=== PATIENT | male | born 1980 | race Caucasian/White ===

== ENCOUNTER 2024-12-07 21:18 | Emergency (ER) | payer MEDICARE, MEDICAID, SELFPAY ==
[2024-12-07] VITALS (9 sets, daily range): BP systolic 162–174; BP diastolic 112–119; PULSE 100–142; RESP 14–22; TEMP 36.5; O2SAT 98–100
--- NOTE | ~2024-12-07 | XR_ITS ---
CHEST RADIOGRAPH CLINICAL HISTORY: Rib fracture w hemothorax, deteriorating . COMPARISON: 12/07/2024 TECHNIQUE: Single portable view of the chest. FINDINGS Examination is limited by patient rotation (towards the patient's right). The cardiomediastinal silhouette is obscured. Hazy opacification of the left hemithorax with significant left pleural thickening and layering densi ty within the left lung base. IMPRESSION: Increased opacification of the left hemithorax with large left-sided pleural thickening and layering density within the left lung base. Given patient's history of rib fracture with hemothorax, this appearance represents significant progr ession, possibly an intercostal hemorrhage. Reviewed, dictated and finalized at location A. IMPRESSION: Increased opacification of the left hemithorax with large left-sided pleural th ickening and layering density within the left lung base. Given patient's history of rib fracture with hemothorax, this appearance repres ents significant progression, possibly an intercostal hemorrhage.
--- NOTE | ~2024-12-07 | XR_ITS ---
EXAMINATION: XR chest ET placement DATE: 12/08/2024 02:45 INDICATION: Endotracheal tube placement TECHNIQUE: frontal view of the chest was obtained. COMPARISON: Chest radiograph dated 12/08/24 FINDINGS: Endotracheal tube tip 4.4 cm above the shawna. Nasogastric tube tip in the body of the stomach with p roximal side-port 6 cm above level of the diaphragm. Diffuse hazy opacities throughout the left hemithorax due primarily to a small to moderate-sized post erior layering left pleural effusion with associated atelectasis which is increased since 12/07/2024. Pneumonia not excludable. Right lung remains clear. No pneumothorax or right-sided pleural effusion. The cardiomediastinal silhouette is normal. Displaced lateral left eighth rib fracture. Calcite galls tones in the right upper quadrant. IMPRESSION: 1. Nasogastric tube tip in the body the stomach with proximal side-port above level of the gastroesop hageal junction. Recommend advancement by 10 cm. 2. Worsening unilateral small to moderate-sized left pleural effusion with associated atelectasis and /or pneumonia. 3. Displaced left eighth rib fracture. 4. Cholelithiasis. Reviewed, dictated and finalized at location A. IMPRESSION: 1. Nasogastric tube tip in the body the stomach with proximal side-port above l evel of the gastroesophageal junction. Recommend advancement by 10 cm. 2. Worsening unilateral small to moderate-sized left pleural effusion with asso ciated atelectasis and/or pneumonia. 3. Displaced left eighth rib fracture. 4. Cholelithiasis.
--- NOTE | ~2024-12-07 | XR_ITS ---
EXAMINATION: XR chest ET placement DATE: 12/08/2024 02:45 INDICATION: Endotracheal tube repositioning TECHNIQUE: frontal view of the chest was obtained. COMPARISON: Chest radiograph dated 12/08/[address] dated 12/07/2024 FINDINGS: Endotracheal tube tip 2.4 cm above the shawna. Nasogastric tube extends beyond the inferior margin of the [id number] which is near the level of the gastroesophageal junction. Unchanged small to moderate-sized left pleural effusion with associated atelectasis and/or pneumonia. Right lung remains clear. No pneumothorax or right-sided pleural effusion. Heart size is normal. Dis placed left eighth rib fracture. IMPRESSION: 1. Endotracheal tube in good position 2.4 cm above the shawna. 2. Unchanged small to moderate-sized left pleural effusion with associated basilar atelectasis and/or pneumonia. 2. Displaced left eighth rib fracture. Reviewed, dictated and finalized at location A. IMPRESSION: 1. Endotracheal tube in good position 2.4 cm above the shwana. 2. Unchanged small to moderate-sized left pleural effusion with associated basi lar atelectasis and/or pneumonia. 2. Displaced left eighth rib fracture.
--- NOTE | ~2024-12-07 | XR_ITS ---
XR chest 1V portable Ordering provider: Darek Price MD History: 44 years Male with . Popping sensation/LL chest LUabdomen . Comparison: None. FINDINGS: MEDIASTINUM: The cardiac silhouette is not enlarged. Congestive reinaldo. LUNGS: No effusions or pneumothorax. Opacification in the left lung base seen suggestive of atelectas is versus pneumonia. Slightly prominent markings in the right lung base is seen. OTHER: No free air under the diaphragm. IMPRESSION: Left basilar atelectasis versus pneumonia. Reviewed, dictated and finalized at location A.
--- NOTE | ~2024-12-07 | CT_ITS ---
CTA chest abdomen pelvis Ordering provider: Darek Price MD History: . popping sensation, L upper abdomen/lower chest, . Comparison: October 05, 2017 Technique: CT angiogram chest, abdomen and pelvis was performed following timed intravenous injection of contrast. Thin slice axial images and reformatted coronal images were obtained. Three dimensional reformatted images of the chest were also obtained using a [employer] workstation. Radiation reduction t echnique utilized.The dose-length product was 1699.12 mGy-cm. 100 mL Omnipaque 350 was given IV. FINDINGS: CHEST: --THORACIC AORTA: normal. No aneurysm, dissection or mediastinal hematoma. --GREAT VESSELS: Normal as visualized. --PULMONARY ARTERIES: No pulmonary embolus. --VISUALIZED THORACIC INLET: Normal. --MEDIASTINUM: Coronary arteries: Normal. Heart/other: The heart is not enlarged. Lymph nodes: No mediastinal or hilar adenopathy. --LUNGS: Left pleural effusion or hemothorax. No pulmonary nodules or masses. No infiltrates. No pneumothorax. --MUSCULOSKELETAL: Superficial soft tissues: The superficial soft tissues are normal. Bones: Fracture of the left eighth rib. Mild degenerative changes of the spine. ABDOMEN/PELVIS: --MUSCULOSKELETAL: Bones: Mild degenerative changes of the spine. Superficial soft tissues: The superficial soft tissues are normal. --UPPER ABDOMINAL ORGANS: Liver: Fat infiltration of the liver. Gallbladder: Cholelithiasis. Spleen: Normal. Stomach/duodenum: Normal. Pancreas: Normal. Adrenals: Normal. Kidneys: Small cyst in the left kidney upper pole. Small cysts also seen in the right kidney lower an d upper pole. --PELVIC ORGANS: The bladder is underfilled with thickened wall. No bladder stones. --BOWEL AND MESENTERY: Colon: No evidence of diverticulitis. Appendix is not demonstrated. Small Bowel: Normal. No obstruction. Peritoneum/mesentery: No free air or free fluid. No mesenteric lymphadenopathy. --RETROPERITONEUM: No retroperitoneal lymphadenopathy. --ARTERIES: ABDOMINAL AORTA: Normal No aneurysm or dissection. RENAL ARTERIES: Normal. CELIAC AXIS: Normal. SMA: Normal. CHANTALE: Normal. ILIAC AND VISUALIZED FEMORAL ARTERIES: Mild atherosclerotic changes MESENTERIC ARTERIES: Normal. IMPRESSION: CHEST: 1. No evidence of dissection or aneurysm. 2. Fracture of the left eighth rib. 3. Left hemothorax. ABDOMEN/PELVIS: 1. No evidence of dissection or aneurysm. 2. No acute abdominal process. 3. Cholelithiasis. 4. Fat infiltration of the liver. Reviewed, dictated and finalized at location A.
--- NOTE | ~2024-12-07 | XR_ITS ---
EXAMINATION: XR chest-chest tube insert/pos DATE: 12/08/2024 03:30 INDICATION: Chest tube placement TECHNIQUE: frontal view of the chest was obtained. COMPARISON: Chest radiograph date at 2:28 AM FINDINGS: Endotracheal tube tip 2.0 cm above the shawna. Nasogastric tube extends below the left hemidiaphragm with distal tip collimated off the study. Interval placement of a left chest tube with distal tip pr ojecting over the medial left apex. There is been near complete resolution of the prior left pleural effusion. Mild opacities in the left mid and lower lung zone which could represent residual atelectasis and/or pneumonia. Right lung dyan ins clear. No pneumothorax or right-sided pleural effusion. Small amount chest wall gas along the pre viously placed chest tube. Unchanged displaced lateral left eighth rib fracture. IMPRESSION: 1. Interval placement of a left chest tube with near complete resolution of prior left pleural effusi on. 2. Mild opacity left mid and lower lung zone which could represent atelectasis and/or pneumonia. Reviewed, dictated and finalized at location A. IMPRESSION: 1. Interval placement of a left chest tube with near complete resolution of selin or left pleural effusion. 2. Mild opacity left mid and lower lung zone which could represent atelectasis and/or pneumonia.
--- NOTE | ~2024-12-07 | XR_ITS ---
EXAMINATION: XR abdomen gastric tube insert DATE: 12/08/2024 02:45 INDICATION: Orogastric tube placement TECHNIQUE: A supine view of the abdomen and lower chest was obtained for evaluation of feeding tube placement. COMPARISON: None. FINDINGS: Nasogastric tube tip in proximal side port in the body of the stomach. Calcified gallstone in the rig ht upper quadrant. Gas in the transverse colon. No dilated loops of small bowel to suggest obstructio n. Opacities at the left lung base consistent with combination of small pleural effusion and associat ed atelectasis and/or pneumonia. IMPRESSION: 1. Nasogastric tube in stomach. 2. Cholelithiasis. 3. Small left pleural effusion with associated basilar atelectasis and/or pneumonia. Reviewed, dictated and finalized at location A. IMPRESSION: 1. Nasogastric tube in stomach. 2. Cholelithiasis. 3. Small left pleural effusion with associated basilar atelectasis and/or pneum onia.
--- OUTSIDE RECORDS SUMMARY | 2024-12-07 21:20 | XMS_ITS | Patient Health Record ---
Author Organization [facility] Address [address] [place] [address] Care Team Providers Care Analytical Laboratory Technician Name Role Phone Aaron Ferris Primary Care Provider [phone] Allergies No Known Allergies Reason For Referral No Information Medications Medication SIG (Take, Route, Frequency, Duration) Notes Start Date End Date Status buPROPion HCl ER (SR) 150 MG 1 tablet in the morning Orally Once a day for 30 day(s) Active Atorvastatin Calcium 20 MG 1 tablet Orally Once a day for 30 day(s) Active Lisinopril 20 MG TAKE 1 TABLET BY MOUTH EVERY DAY for 30 No refills. Needs appointment. Active Nicoderm CQ 14 MG/24HR 1 patch to skin Transdermal Once a day for 30 day(s) 09/14/2017 Not-Taking Nicoderm CQ 7 MG/24HR 1 patch to skin Transdermal Once a day for 30 day(s) 09/14/2017 Not-Taking tiZANidine HCl 4 MG TAKE 1 TABLET BY MOUTH AT NIGHT NEEDED for 30 Active amLODIPine Besylate 5 MG TAKE 1 TABLET BY MOUTH EVERY DAY for 30 No refills. Needs appointment. Active traZODone HCl 50 MG 1 tablet Orally at bedtime as needed for 30 days 11/01/2017 Not-Taking Nicoderm CQ 21 MG/24HR 1 patch to skin Transdermal Once a day for 30 day(s) 09/14/2017 Not-Taking Ranitidine HCl 300 MG 1 tablet at bedtim e Orally at bedtime for 30 day(s) 09/14/2017 Not-Taking Social History Tobacco Use: Social History Observation Description Date Details (start date - stop date) Current Smoker NA - NA Sex Assigned At : Social History Observation Description Sex Assigned At Male Dont use, Tobacco Use/Smoking Question Answer Notes Are you a current smoker How often do you smoke cigarettes? every day How many cigarettes a day do you smoke? 6-10 How soon after you wake up d o you smoke your first cigarette? within 5 minutes Are you interested in quitting? Ready to quit Additional Findings: Tobacco User Heavy cigarett e smoker (20-39 cigs/day) Alcohol Screen (Audit-C) Question Answer Notes Did you have a drink containing alcohol in the p ast year? Yes Section Notes: Patient is 37 year single, C aucasian male accompanied by his meetaeClaudia. Patient reports he moved to [facility] 2 years ago from [place], [place]. Patient reports he is unemployed at this time. Patient reports he graduated from [employer]. Patient reports he misses his children that live in [place] with their mother. Problems Problem Type SNOMED Code ICD Code Onset Dates Problem Status W/U Status Risk Notes Problem [id number] Morbid (severe) obesity due to excess calories (E66.01) Active confirmed Problem Tobacco user (868739586) Nicotine dependence, unspecified, uncomplicated (F17.200) Active confirmed Problem Chronic pain (95145752) Other chronic pain (G89.29) Active confirmed Problem 06483295 Tobacco dependency (F17.200) Active confirmed Problem 18501719 Depression, unspecified depression type (F32.9) 05/17/20 22 Active confirmed Problem 19420320 Essential hypertension (I10) 05/17/20 22 Active confirmed Problem Gastroesophageal reflux disease (202920474) GERD without esophagitis (K21.9) Active confirmed Problem 048437359 Body mass index [BMI] 40.0-44.9, adult (Z68.41) Active confirmed Plan Of Treatment No Information Insurance Providers Payer Name Payer Address Payer Phone Subscriber Number Group Number Insured Name Patient Relationship to Insured Coverage Start Date Coverage End Date [facility] Medicare [address] [address] [place] [address] [id number] Slim Armas Self - patient is the insured 0 [employer] Medicare Assure [address] [address] [place] [address] [id number] Slim Armas Self - patient is the insured 2 MEDICAID [address] [place] [address] [id number] Slim Armas Self - patient is the insured 8 MEDICARE PART A [address] [place] [address] [id number] Slim Armas Self - patient is the insured 1 Medical (General) History Medical History History ICD Code HTN depression cerebral palsy ADHD Surgical History Surgery Date(Month/Year) Hospitalization History Reason Date(Month/Year)
--- OUTSIDE RECORDS SUMMARY | 2024-12-07 21:20 | XMS_ITS | Patient Health Record ---
Author Organization [facility] Address [address] [facility] [address] [place] [address] Care Team Providers Care Outside Residential Sales Professional Name Role Phone Ja Rico Unavailable [phone] Migration, Provider Unavailable Unavailable Allergies No Known Allergies Reason For Referral No Information Medications Medication SIG (Take, Route, Frequency, Duration) Notes Start Date End Date Status Sertraline HCl 50 MG TAKE 1 TABLET BY [facility] AT BEDTIME for 30 Active amLODIPine Besylate 5 MG Oral 04/14/2023 Not-Taking Sertraline HCl 50 MG 1 tablet Oral at be dtime for 90 days Active Lisinopril 20 MG Oral 04/14/2023 No t-Taking Social History Tobacco Use: Social History Observation Description Date Details (start date - stop date) Heavy tobacco s fior NA - NA Sex Assigned At : Social History Observation Description Sex Assigned At Male Tobacco Control (Standard) Question Answer Notes Tobacco use: Heavy tobacco smoker Section Notes: Do you or have you ever smok ed tobacco?: Current every day smokerHow much tobacco do you smoke?: 2 packs per dayHow many years have you smoked tobacco?: (Notes: started age 18)Do you or have you ever used any other forms of tobacco or nicotine?: NoWhat was the date of your most recent tobacco screening?: 03/08/2023Has tobacco cessation counseling been provided?: YesOn what date was tobacco cessation counseling provided?: 03/08/2023What is your level of alcohol consumption?: OccasionalHave you ever been counseled for unhealthy alcohol use?: NoDo you use any illicit or recreational drugs?: YesWhich illicit or recreational drugs have you used?: WeedHave you used IV drugs?: NoWhat is your level of caffeine consumption?: HeavyEducation and OccupationWhat is the highest grade or level of school you have completed or the highest degree you have received?: High school graduateAre you currently in school?: NoAre you currently employed?: NoMarriage and SexualityWhat is your relationship status?: Domestic partnerAre you sexually active?: YesDo you use protection during sex?: NoHow many children do you have?: 6Home and EnvironmentAre there any guns present in your home?: NoAdvance DirectiveDo you have an advance directive?: NoWhat is your code status?: Full CodeDo you have a medical power of commercial real estate attorney?: NoPublic Health and TravelHave you been to an area known to be high risk for COVID-19?: NoGender Identity and LGBTQ IdentityGender identity: Identifies as MaleAssigned sex at : MaleSexual orientation: Straight or heterosexual Do you or have you ever smok ed tobacco?: Current every day smokerHow much tobacco do you smoke?: 2 packs per dayHow many years have you smoked tobacco?: (Notes: started age 18)Do you or have you ever used any other forms of tobacco or nicotine?: NoWhat was the date of your most recent tobacco screening?: 03/08/2023Has tobacco cessation counseling been provided?: YesOn what date was tobacco cessation counseling provided?: 03/08/2023What is your level of alcohol consumption?: OccasionalHave you ever been counseled for unhealthy alcohol use?: NoDo you use any illicit or recreational drugs?: YesWhich illicit or recreational drugs have you used?: WeedHave you used IV drugs?: NoWhat is your level of caffeine consumption?: HeavyEducation and OccupationWhat is the highest grade or level of school you have completed or the highest degree you have received?: High school graduateAre you currently in school?: NoAre you currently employed?: NoMarriage and SexualityWhat is your relationship status?: Domestic partnerAre you sexually active?: YesDo you use protection during sex?: NoHow many children do you have?: 6Home and EnvironmentAre there any guns present in your home?: NoAdvance DirectiveDo you have an advance directive?: NoWhat is your code status?: Full CodeDo you have a medical power of commercial real estate attorney?: NoPublic Health and TravelHave you been to an area known to be high risk for COVID-19?: NoGender Identity and LGBTQ IdentityGender identity: Identifies as MaleAssigned sex at : MaleSexual orientation: Straight or heterosexual Problems Problem Type SNOMED Code ICD Code Onset Dates Problem Status W/U Status Risk Notes Problem Moderate recurrent major depression (04573546) Major depressive disorder, recurrent, moderate (F33.1) 3 Active confirmed Problem Generalized anxiety disorder (01401040) Generalized anxiety disorder (F41.1) 3 Active confirmed Problem Insomnia disorder related to another mental disorder (41721396) Insomnia due to other mental disorder (F51.05) 3 Active confirmed Vital Signs Heart Rate 89 /min 04/06/2024 Height-cm 190.50 cm 04/06/2024 Blood pressure diastolic 107 mm Hg 04/06/2024 Weight-kg 160.57 kg 04/06/2024 Height 75.00 in 04/06/2024 Blood pressure systolic 160 mm Hg 04/06/2024 Weight 354 lbs 04/06/2024 BMI 44.24 kg/m2 04/06/2024 Encounters Encounter Location Date Provider Diagnosis [facility] [employer] [address] [address] 02/21/2024 Ja Rico Major depressive disorder, recurrent, moderate F33.1 ; Generalized anxiety disorder F41.1 and Insomnia due to other mental disorder F51.05 [facility] [employer] [place] [address] [address] 03/20/2024 Ja Rico [facility] [employer] [place] [address] [address] 04/06/2024 Ja Rico Major depressive disorder, recurrent, moderate F33.1 ; Generalized anxiety disorder F41.1 and Insomnia due to other mental disorder F51.05 [facility] [employer] [place] [address] [address] 10/09/2024 Ja Rico [facility] [employer] [place] [address] [address] 12/31/2023 Provider Migration [facility], [facility] [address] [place] [address] 01/01/2024 Provider Migration [facility] [employer] [facility] [address] [place] [address] 02/14/2024 Ja Jacky Assessments Encounter Date Diagnosis (ICD Code) Assessment Notes Treatment Notes Treatment Clinical Notes Section Notes 02/21/2024 Major depressive disorder, recurrent, moderate (ICD-10 - F33.1) Preventing Depression From Coming Back: Care Instructions material was published, Learning About Depression Screening material was published, Learning About Depression material was published, Seasonal Affective Disorder: Care Instructions material was published, Depression Treatment: Care Instructions material was published (hx Viibyrd 20 mg daily patient reported he stopped rx r/t diarrhea) Add Sertraline 50 mg at night for depression and anxiety - educated on rx educated on all medications, benefits, side effects and risk, and educated on depression, anxiety, and ADHD, mood d/o and educated on compliance of medications, metabolic and movement d/o education appointment's, continue therapy discussion with patient about course of treatmentand patient instructions. education on serotonin syndrome OBTAIN LABS PCP F33.1: Major depressive disorder, recurrent, moderatediscuss animal support letter for cat sertraline 50 mg tablet - Take 1 tablet(s) every day by oral route at bedtime for 30 days. Qty: (30) tablet Refills: 0 Pharmacy: [facility] #[id number] 2. Generalized anxiety disorder -Add Sertraline 50 mg at night for depression and xkrdsarS83.1: Generalized anxiety disorder 3. Insomnia disorder related to another mental disorder -Melatonin 5 mg at bedtime OTCF51.05: Insomnia due to other mental disorder 4. Tobacco user -discuss rx for quit smoking and patient refused at this timeZ72.0: Tobacco use 02/21/2024 Generalized anxiety disorder (ICD-10 - F41.1) Learning About Generalized Anxiety Disorder material was published, Learning About Anxiety Disorders material was published (hx Viibyrd 20 mg daily patient reported he stopped rx r/t diarrhea) Add Sertraline 50 mg at night for depression and anxiety - educated on rx educated on all medications, benefits, side effects and risk, and educated on depression, anxiety, and ADHD, mood d/o and educated on compliance of medications, metabolic and movement d/o education appointment's, continue therapy discussion with patient about course of treatmentand patient instructions. education on serotonin syndrome OBTAIN LABS PCP F33.1: Major depressive disorder, recurrent, moderatediscuss animal support letter for cat sertraline 50 mg tablet - Take 1 tablet(s) every day by oral route at bedtime for 30 days. Qty: (30) tablet Refills: 0 Pharmacy: [facility] #[id number] 2. Generalized anxiety disorder -Add Sertraline 50 mg at night for depression and wscdbgjT30.1: Generalized anxiety disorder 3. Insomnia disorder related to another mental disorder -Melatonin 5 mg at bedtime OTCF51.05: Insomnia due to other mental disorder 4. Tobacco user -discuss rx for quit smoking and patient refused at this timeZ72.0: Tobacco use 04/06/2024 Major depressive disorder, recurrent, moderate (ICD-10 - F33.1) Preventing Depression From Coming Back: Care Instructions material was published, Learning About Depression Screening material was published, Learning About Depression material was published, Seasonal Affective Disorder: Care Instructions material was published, Depression Treatment: Care Instructions material was published, Preventing Depression From Coming Back: Care Instructions material was published, Learning About How to Get Help During a Mental Health Crisis material was published, Learning About Depression material was published, Learning About Depression Screening material was published, Seasonal Affective Disorder: Care Instructions material was published (hx Viibyrd 20 mg daily patient reported he stopped rx r/t diarrhea) Sertraline 50 mg at night for depression and anxiety - educated on rx educated on all medications, benefits, side effects and risk, and educated on depression, anxiety, and ADHD, mood d/o and educated on compliance of medications, metabolic and movement d/o education appointment's, continue therapy discussion with patient about course of treatmentand patient instructions. education on serotonin syndrome OBTAIN LABS PCP 2. Generalized anxiety disorder - Sertraline 50 mg at night for depression and anxiety 3. Insomnia disorder related to another mental disorder -Melatonin 5 mg at bedtime 4. Tobacco user -discuss rx for quit smoking and patient refused at this time 04/06/2024 Generalized anxiety disorder (ICD-10 - F41.1) Learning About Generalized Anxiety Disorder material was published, Learning About Anxiety Disorders material was published, Learning About Generalized Anxiety Disorder material was published, Learning About Anxiety Disorders material was published, Generalized Anxiety Disorder: Care Instructions material was published (hx Viibyrd 20 mg daily patient reported he stopped rx r/t diarrhea) Sertraline 50 mg at night for depression and anxiety - educated on rx educated on all medications, benefits, side effects and risk, and educated on depression, anxiety, and ADHD, mood d/o and educated on compliance of medications, metabolic and movement d/o education appointment's, continue therapy discussion with patient about course of treatmentand patient instructions. education on serotonin syndrome OBTAIN LABS PCP 2. Generalized anxiety disorder - Sertraline 50 mg at night for depression and anxiety 3. Insomnia disorder related to another mental disorder -Melatonin 5 mg at bedtime 4. Tobacco user -discuss rx for quit smoking and patient refused at this time 02/21/2024 Insomnia due to other mental disorder (ICD-10 - F51.05) (hx Viibyrd 20 mg daily patient reported he stopped rx r/t diarrhea) Add Sertraline 50 mg at night for depression and anxiety - educated on rx educated on all medications, benefits, side effects and risk, and educated on depression, anxiety, and ADHD, mood d/o and educated on compliance of medications, metabolic and movement d/o education appointment's, continue therapy discussion with patient about course of treatmentand patient instructions. education on serotonin syndrome OBTAIN LABS PCP F33.1: Major depressive disorder, recurrent, moderatediscuss animal support letter for cat sertraline 50 mg tablet - Take 1 tablet(s) every day by oral route at bedtime for 30 days. Qty: (30) tablet Refills: 0 Pharmacy: [facility] #[id number] 2. Generalized anxiety disorder -Add Sertraline 50 mg at night for depression and ktcpkwxP85.1: Generalized anxiety disorder 3. Insomnia disorder related to another mental disorder -Melatonin 5 mg at bedtime OTCF51.05: Insomnia due to other mental disorder 4. Tobacco user -discuss rx for quit smoking and patient refused at this timeZ72.0: Tobacco use 04/06/2024 Insomnia due to other mental disorder (ICD-10 - F51.05) (hx Viibyrd 20 mg daily patient reported he stopped rx r/t diarrhea) Sertraline 50 mg at night for depression and anxiety - educated on rx educated on all medications, benefits, side effects and risk, and educated on depression, anxiety, and ADHD, mood d/o and educated on compliance of medications, metabolic and movement d/o education appointment's, continue therapy discussion with patient about course of treatmentand patient instructions. education on serotonin syndrome OBTAIN LABS PCP 2. Generalized anxiety disorder - Sertraline 50 mg at night for depression and anxiety 3. Insomnia disorder related to another mental disorder -Melatonin 5 mg at bedtime 4. Tobacco user -discuss rx for quit smoking and patient refused at this time 02/21/2024 Other (hx Viibyrd 20 mg daily patient reported he stopped rx r/t diarrhea) Add Sertraline 50 mg at night for depression and anxiety - educated on rx educated on all medications, benefits, side effects and risk, and educated on depression, anxiety, and ADHD, mood d/o and educated on compliance of medications, metabolic and movement d/o education appointment's, continue therapy discussion with patient about course of treatmentand patient instructions. education on serotonin syndrome OBTAIN LABS PCPF33.1: Major depressive disorder, recurrent, moderatediscuss animal support letter for cat sertraline 50 mg tablet - Take 1 tablet(s) every day by oral route at bedtime for 30 days. Qty: (30) tablet Refills: 0 Pharmacy: [facility] #[id number] 2. Generalized anxiety disorder -Add Sertraline 50 mg at night for depression and gaiuurxQ46.1: Generalized anxiety disorder 3. Insomnia disorder related to another mental disorder -Melatonin 5 mg at bedtime OTCF51.05: Insomnia due to other mental disorder 4. Tobacco user -discuss rx for quit smoking and patient refused at this timeZ72.0: Tobacco use, Sertraline Oral Tablet (SERTRALINE - ORAL) material was published, Insomnia: Care Instructions material was published, Learning About Sleeping Well material was published, Quitting Tobacco: Care Instructions material was published, Learning About Benefits of Quitting Smoking material was published, Secondhand Smoke: Care Instructions material was published (hx Viibyrd 20 mg daily patient reported he stopped rx r/t diarrhea) Add Sertraline 50 mg at night for depression and anxiety - educated on rx educated on all medications, benefits, side effects and risk, and educated on depression, anxiety, and ADHD, mood d/o and educated on compliance of medications, metabolic and movement d/o education appointment's, continue therapy discussion with patient about course of treatmentand patient instructions. education on serotonin syndrome OBTAIN LABS PCP F33.1: Major depressive disorder, recurrent, moderatediscuss animal support letter for cat sertraline 50 mg tablet - Take 1 tablet(s) every day by oral route at bedtime for 30 days. Qty: (30) tablet Refills: 0 Pharmacy: [facility] #[id number] 2. Generalized anxiety disorder -Add Sertraline 50 mg at night for depression and hkjyhkdO81.1: Generalized anxiety disorder 3. Insomnia disorder related to another mental disorder -Melatonin 5 mg at bedtime OTCF51.05: Insomnia due to other mental disorder 4. Tobacco user -discuss rx for quit smoking and patient refused at this timeZ72.0: Tobacco use 04/06/2024 Other Sertraline Oral Tablet (SERTRALINE - ORAL) material was published (hx Viibyrd 20 mg daily patient reported he stopped rx r/t diarrhea) Sertraline 50 mg at night for depression and anxiety - educated on rx educated on all medications, benefits, side effects and risk, and educated on depression, anxiety, and ADHD, mood d/o and educated on compliance of medications, metabolic and movement d/o education appointment's, continue therapy discussion with patient about course of treatmentand patient instructions. education on serotonin syndrome OBTAIN LABS PCP 2. Generalized anxiety disorder - Sertraline 50 mg at night for depression and anxiety 3. Insomnia disorder related to another mental disorder -Melatonin 5 mg at bedtime 4. Tobacco user -discuss rx for quit smoking and patient refused at this time Plan Of Treatment No Information Insurance Providers Payer Name Payer Address Payer Phone Subscriber Number Group Number Insured Name Patient Relationship to Insured Coverage Start Date Coverage End Date [employer] Medicare Replacement/ Advantage - Ppo [address] [address] [place] [address] [id number] SABAS GONZALEZ JR Self - patient is the insured Medical (General) History Medical History History ICD Code Problems: Generalized anxiety disorder Insomnia disorder related to another men fletcher disorder Mild recurrent major depression Moderate recurrent major depression Tobacco user , Anxiety Disorder: Y Depression Major: Y Panic Episodes: Y Hypertension: Y Surgical History Surgery Date(Month/Year) cyst removed off tailbone 1998
--- NOTE | 2024-12-07 21:39 | ECG_ITS ---
Test Date: 2024-12-07 21:59:29 Measurements Intervals [place] Rate: 103 P: 23 NC: 148 QRS: 25 QRSD: 105 T: 48 QT: 333 QTc: 436 Interpretive Statements SINUS TACHYCARDIA BASELINE ARTIFACT- I, III, AVL, V1, V6 BORDERLINE ECG No previous ECG available for comparison Electronically Signed On 12-08-2024 06:57:20 CDT by Saeed Zavaleta D.O.
--- OUTSIDE RECORDS SUMMARY | 2024-12-07 21:48 | XMS_ITS | Referral Summary ---
Author Organization [facility] Address [address] [facility] [address] [place] [address] Phone Care Team Providers Care Log Loader Helper Name Role Phone Danuta Everett RAIL SWITCH OPERATOR Primary Care Provider Encounters Date Type Department Care Team Description 11/23/2024 Nurse Triage [facility] Primary Care at [address] [place] [address] Danuta Everett NP 11/15/2024 1:30 PM CDT Office Visit [facility] Primary Care at [address] [place] [address] Danuta Everett NP Establishing care with new doctor, encounter for (Primary Dx); Essential hypertension; Mixed hyperlipidemia; Moderate episode of recurrent major depressive disorder (HCC); Gastroesophageal reflux disease, unspecified whether esophagitis present; Environmental and seasonal allergies; Acute non-recurrent sinusitis, unspecified location; Muscle strain; Morbid obesity with BMI of 40.0-44.9, adult (HCC); Encounter for screening examination for impaired glucose regulation and diabetes mellitus; Screening for thyroid disorder; Need for hepatitis C screening test; Need for hepatitis B screening test from Last 3 Months Allergies No known active allergies Medications sertraline (ZOLOFT) 50 mg tablet Take 1 tablet (50 mg total) by mouth daily 02/21/20 24 Active atorvastatin (LIPITOR) 20 mg tabletIndications: Mixed hyperlipidemia Take 1 tablet (20 mg total) by mouth daily 90 tablet 3 11/16/19 25 Active lisinopriL (PRINIVIL,ZESTRIL) 20 mg tabletIndications: Essential hypertension Take 1 tablet (20 mg total) by mouth daily 90 tablet 3 11/16/19 25 026 Active cyclobenzaprine (FLEXERIL) 5 mg tabletIndications: Muscle strain Take 1 tablet (5 mg total) by mouth 3 (three) times a day as needed for muscle spasms 30 tablet 11/16/19 25 025 Active montelukast (SINGULAIR) 10 mg tabletIndications: Environmental and seasonal allergies Take 1 tablet (10 mg total) by mouth nightly 90 tablet 1 11/16/19 25 026 Active atorvastatin (LIPITOR) 20 mg tabletIndications: High cholesterol Take 1 tablet (20 mg total) by mouth daily 90 tablet 3 02/22/20 24 025 Discontinu ed(Reorder ) methylPREDNISolone (MEDROL DOSEPACK) 4 mg DosepackIndication s:Acute non-recurrent sinusitis, unspecified location Take as directed on package. 21 tablet 11/16/19 25 025 amoxicillin-clavul anate (AUGMENTIN) 875-125 mg per tabletIndications: Acute non-recurrent sinusitis, unspecified location Take 1 tablet by mouth 2 (two) times a day for 10 days 20 tablet 11/16/19 25 025 Active Problems Problem Noted Date Diagnosed Date Environmental and seasonal allergies 11/15/2024 Assessment & Plan (11/16/2024 12:40 PM CDT): -chronic, controlled -currently uses OTC medication as needed -reports worsening of allergies during environmental and weather changes -Singulair 10 mg nightly prescribed -continue current treatment plan High cholesterol 02/22/2024 Assessment & Plan (11/16/2024 11:30 AM CDT): -chronic, controlled -currently takes atorvastatin 20 mg daily -Discussed importance of well-balanced diet -will recheck lab values -refill of medication provided -continue current treatment plan Assessment & Plan (02/22/2024 6:34 PM CDT): Chronic. Reports compliance with the atorvastatin 20 mg daily. Continue. Check cholesterol level and adjust as needed. We will go ahead and refill the atorvastatin to cover him just in case I do not want him to run out IGT (impaired glucose tolerance) 02/22/2024 Assessment & Plan (02/22/2024 6:34 PM CDT): Chronic. Was noted on labs last year. Needs improvement. Encouraged healthy diet, exercise and weight loss. Monitor Family history of Crohn's disease 02/22/2024 Assessment & Plan (02/22/2024 6:36 PM CDT): Given patient's diarrhea and chronic abdominal pain symptoms would be very reasonable to see GI to make sure he does not also have Crohn's disease. Referral provided. Stressed importance of making sure he is scheduled to follow through with this Chronic diarrhea 02/22/2024 Assessment & Plan (02/22/2024 6:36 PM CDT): We will get GI opinion on symptoms. Referral provided. Avoid triggers. Labs ordered to check for celiac disease Nicotine dependence, unspecified, uncomplicated 08/17/2022 Assessment & Plan (02/22/2024 6:35 PM CDT): Chronic. Needs improvement. Patient counseled to quit. He has not ready Morbid obesity with BMI of 40.0-44.9, adult 10/2022 Assessment & Plan (11/16/2024 11:30 AM CDT): Wt Readings from Last 3 Encounters: 11/15/24 (!) 158.4 kg (349 lb 4.8 oz) 02/22/24 (!) 155 kg (341 lb 12.8 oz) 12/28/22 (!) 149.7 kg (330 lb) Body mass index is 44.83 kg/m . -Stable, not at goal of <30 bmi -Discussed recommendations for exercise at least 30 minutes moderate to vigorous exercise as tolerated most days of the week. (minimum 150 minutes weekly) -Discussed importance of well-balanced diet Assessment & Plan (02/22/2024 6:33 PM CDT): Chronic. Suboptimally controlled. Worsening since last year. Encouraged healthy diet, exercise, weight loss Gastroesophageal reflux disease 08/17/2022 Assessment & Plan (11/16/2024 12:40 PM CDT): -chronic, controlled -patient currently takes OTC medication as needed -patient encouraged to continue avoiding trigger foods and remaining upright at least 30 minutes after eating or drinking -continue current treatment plan Chronic abdominal pain 08/17/2022 Assessment & Plan (02/22/2024 6:35 PM CDT): Will check labs to rule out celiac disease and other pathology. We will go ahead and refer back to GI as he never followed through with referral last year. Given strong family history of Crohn's disease patient likely would benefit from seeing GI for more definitive evaluation. Monitor symptoms. Avoid triggers Other cerebral palsy 08/17/2022 Assessment & Plan (02/22/2024 6:34 PM CDT): Chronic. Mild stable deficits. Monitor Learning disability 08/17/2022 Overview (08/17/2022): low IQ Moderate episode of recurrent major depressive d isorder 05/17/2022 Assessment & Plan (11/16/2024 12:44 PM CDT): -chronic, controlled -patient currently prescribed sertraline 50 mg which he states he has not been taking and feels that he is doing okay without the medication -patient denies any worsening of depressed mood, thoughts of harming themselves or others, or worsening anxiety -continue current treatment plan Assessment & Plan (02/22/2024 6:34 PM CDT): Chronic. Patient reports mood is well controlled with sertraline. Continue. He is to work closely with a psychiatrist. He reports he is also working with a friend who has a counselor and this has been helping quite a bit Essential hypertension 05/17/2022 Assessment & Plan (11/16/2024 11:30 AM CDT): BP Readings from Last 3 Encounters: 11/15/24 156/100 02/22/24 120/78 12/28/22 120/96 -chronic, not at goal of <140/90 -currently taking lisinopril 20 mg which he has not taken in a few months due to running out of the medication -patient reports checking blood pressure occasionally at home which has been running high -encourage patient to continue low-sodium diet -refill of medication provided -continue current treatment plan Assessment & Plan (02/22/2024 6:34 PM CDT): Chronic. Noncompliant with medication and appointments. He has been off medication for several months. Blood pressure was at goal in office today off medication. This was confirmed with manual reading by provider. Given blood pressure is remaining at goal off all blood pressure medication we will monitor him off medication. Encouraged healthy diet, exercise, weight loss Immunizations Immunization Administration Dates Next Due Influenza, Unspecified 08/15/2023(Deferr ed: Patient Refused),08/15/2022(Deferred: Patient Refused) Social History Tobacco Use Types Packs/Day Years Used Date Smoking Tobacco: Every Day Cigarettes 1 25 Smokeless Tobacco: Never Tobacco Cessation:Ready to Q uit: No; Counseling Given: Yes Comments:Previously 1.5 ppd but recently cut back to 1 ppd AUDIT-C Answer Date Recorded Q1: How often do you have a drink containing alc ohol? 2-4 times a month 11/15/2024 Q2: How many drinks containi ng alcohol do you have on a typical day when you are drinking? 1 or 2 11/15/2024 Q3: How often do you have si x or more drinks on one occasion? 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 Gender Identity Not on file Sexual Orientation Not on file Last Filed Vital Signs Vital Sign Reading Time Taken Comments Blood Pressure 156/100 11/15/2024 1:28 PM CDT Pulse 102 11/15/2024 1:28 PM CDT Temperature 36.7 C (98 F) 11/15/2024 1:28 PM CDT Respiratory Rate 16 11/15/2024 1:28 PM CDT Oxygen Saturation 98% 11/15/2024 1:28 PM CDT Inhaled Oxygen Concentration - - Weight 158.4 kg (349 lb 4.8 oz) 11/15/2024 1:28 PM CDT Height 188 cm (6' 2.02 ) 11/15/2024 1:28 PM CDT Body Mass Index 44.83 11/15/2024 1:28 PM CDT Plan of Treatment Not on file Insurance [facility] MEDICARE ADVANTAGE [facility]IC[facility] Address: [address] [phone] Care Teams Log Loader Helper Relationship Specialty Start Date End Date Danuta Everett NP [address] [place] [address] [place] [address] PCP - General Family Medicine 11/15/24
--- OUTSIDE RECORDS SUMMARY | 2024-12-07 21:48 | XMS_ITS | Clinical Summary ---
Author Organization [facility] Address [address] [facility] [address] [place] [phone] Phone Care Team Providers Care Keymodule Assembly Machine Tender Name Role Phone Danuta Everett NP Primary Care Provider Allergies No known active allergies Medications sertraline [...] medication. Encouraged healthy diet, exercise, weight loss Encounters Date Type Department Care Team Description 11/23/2024 Nurse Triage [facility] Primary Care at [address] [place] [address] Danuta Everett NP 11/15/2024 1:30 PM CDT Office Visit [facility] Primary Care at [address] [place] [phone] Danuta Everett NP Establishing care with new [...] B screening test from Last 3 Months Immunizations Immunization Administration Dates Next Due Influenza, Unspecified 08/15/2023(Deferr ed: Patient Refused),08/15/2022(Deferred: Patient Refused) Surgical History Surgery Date Site/Laterality Comments OTHER SURGICAL HISTORY removal of cyst off sacral with possible connection to spinal column as an infant Medical History Medical History Date Comments Hypertension Hyperlipidemia Cerebral palsy (HCC) Depression Intellectual disability low IQ Adhd Chickenpox Family History Medical History Relation Name Comments Aortic aneurysm Father Coronary artery disease Father Heart attack Father Hyperlipidemia Father Kidney disease Father Colon cancer Maternal Grandfather Crohn's disease Maternal Grandfather Dementia Maternal Grandmother Hypertension Maternal Grandmother Dementia Mother Depression Mother Hypertension Mother Psoriasis Paternal Grandfather Sleep apnea Paternal Grandfather No Known Problems Paternal Grandmother Crohn's disease Sister 1 No Known Problems Sister 2 Relation Name Status Comments Father Maternal Grandfather Maternal Grandmother Mother Alive Paternal Grandfather Paternal Grandmother Sister 1 Alive Sister 2 Alive Social History Tobacco Use Types Packs/Day Years [...] on file 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 Gender Identity Not on file Sexual Orientation Not on file Obstetrics History Last Filed Vital Signs Vital Sign Reading [...] 11/15/2024 1:28 PM CDT Plan of Treatment Health Maintenance Due Date Last Done Comments Hepatitis C Screening 1981 DTaP/Tdap/Td Vaccine (1 - Tdap) 02/02/1992 Hepatitis B Screening 1999 Pneumococcal vaccine <65 (1 of 2 - PCV) 02/02/2000 Regular Well Visit/Exam 18-64 02/21/2025 02/22/2024 Influenza Vaccine (Season Ended) 2025 Depression Screening 11/15/2025 11/15/2024, 02/22/2024, 08/17/2022 HPV Vaccines Aged Out No longer eligi ble based on patient's age to complete this topic Insurance [facility] MEDICARE ADVANTAGE Care Teams Keymodule Assembly Machine Tender Relationship Specialty Start Date End Date Danuta Everett NP [address] [place] [address] [address] PCP - General Family Medicine 11/15/24
[2024-12-07] MEDS: SODIUM CHLORIDE 0.9% IV 1,000 ML 999 ML IV CONT (22:02)
[2024-12-07] MEDS: diazePAM INJ (*CRX) 10 MG/2 ML SYRINGE 5 MG IV PUSH (22:10)
[2024-12-07 22:21] LABS: Basophils Absolute Auto 0.1 K/mm3 (0.0-0.1); Basophils Percent Auto 0.4 % (0.2-1.2); Eosinophils Absolute Auto 0.1 K/mm3 (0-0.3); Eosinophils Percent Auto 0.9 % (0-4.4); Hematocrit 44.2 % (42.0-52.0); Hemoglobin 14.6 g/dL (14.0-18.0); Immature Granulocyte Percent A 0.6 % (0-0.5); Lymphocytes Absolute Auto 2.01 K/mm3 (0.9-3.2); Lymphocytes Percent Auto 12.4 % (18.3-44.2); Mean Corpuscular Hemoglobin 31.1 pg (26-34); Mean Corpuscular Volume 94.2 fl (80-100); Mean Platelet Volume 10.8 fl (7.4-10.4); Monocytes Absolute Auto 0.6 K/mm3 (0.1-0.6); Monocytes Percent Auto 3.9 % (2.6-8.5); Neutrophils Absolute Auto 13.3 K/mm3 (1.3-6.7); Neutrophils Percent Auto 81.8 % (45.5-73.1); Platelet Count Result 250 k/mm3 (150-375); Red Blood Count 4.69 M/mm3 (4.6-6.20); Red Cell Distribution Width 12.5 % (11.5-14.5); White Blood Count 16.2 K/mm3 (4.5-10.0)
[2024-12-07 22:31] LABS: Prothrombin Time 13.2 Seconds (11.1-14.7)
[2024-12-07 22:32] LABS: Partial Thromboplastin Time 28.8 Seconds (22.3-36.8)
[2024-12-07 22:35] LABS: Ethanol < 10 mg/dL (<10)
[2024-12-07 22:36] LABS: Alanine Aminotransferase 42 U/L (6-50); Albumin Level 4.4 g/dL (3.5-5.1); Alkaline Phosphatase 95 U/L (38-126); Anion Gap 12 mmol/L (4-12); Aspartate Amino Transferase 28 U/L (17-59); Bilirubin,Total 0.7 mg/dL (0.2-1.3); Blood Urea Nitrogen 9 mg/dL (9-20); Calcium 9.1 mg/dL (8.4-10.2); Carbon Dioxide 19 mmol/L (22-30); Chloride 106 mmol/L (98-107); Estimated CRCL calculation 205 ml/min; Estimated Glomerular Filt Rate > 60; Glucose 150 mg/dL (65-110); Lipase 83 U/L (23-300); Magnesium 2.1 mg/dL (1.6-2.3); Phosphorus 3.2 mg/dL (2.5-4.5); Potassium 4.1 mmol/L (3.4-5.0); Sodium 137 mmol/L (137-145)
[2024-12-07 22:37] LABS: Lactic Acid Reflex 1.7 mmol/L (0.7-2.0)
[2024-12-07 22:56] LABS: Influenza A QL RT-PCR Negative (Negative); Influenza B QL RT-PCR Negative (Negative); RSV RNA, RT-PCR Negative (Negative); SARS-CoV-2 RNA PCR Negative (Negative)
--- NOTE | 2024-12-07 23:09 | PC.NURSE ---
Report received from DANITZA Jacobsen. Assumed care of patient at this time.
--- NOTE | 2024-12-07 23:29 | PC.NURSE ---
Patient returns from CT and states he feels SOB. Patient readjusted in bed. Patient noted to have some wheezing and respiratory assessment. Patient states he has pain with inspiration. ERP notified and goes to assess patient.
[2024-12-07] MEDS: HYDROmorphone HCL INJ (*CRX) 2 MG/ML VIAL 0.5 MG IV PUSH (23:33)
[2024-12-07] MEDS: methylPREDNISolone SOD SUCC 125 MG VIAL IV PUSH (23:34)
--- NOTE | 2024-12-07 23:35 | ED_ITS ---
HPI - General Adult General Chief complaint: Abdominal Pain Stated complaint: heard something pop after coughing Time Seen by Provider: 12/07/24 21:27 History of Present Illness HPI narrative: This is a 44-year-old male history of asthma presenting for a popping sensation. Patient has had a cough for several weeks. Today was coughing he felt a popping sensation in his left lower chest/left upper abdomen. Is caused him significant discomfort he has been unable to sleep due to the pain. He is not taking pain control. Patient says that he feels short of breath he denies fevers but is diaphoretic. He denies any history of CHF or lower extremity edema. No nausea/vomiting/diarrhea. Related Data Allergies Allergy/AdvReac Type Severity Reaction Status Date / Time No Known Allergies Allergy Verified 12/07/24 22:12 [facility] Past Medical History Medical History (Updated 12/08/24 @ 04:15 by Kavita Barnett DO) Cerebral palsy Patient states that he was told he outgrew it Tobacco abuse disorder Anxiety Hyperlipidemia Essential hypertension Morbid obesity with BMI of 40.0-44.9, adult Social History Social History (Updated 12/08/24 @ 04:08 by Kavita Barnett DO) Social History: Patient lives with his fidele of 7 years and his son. His smoked 2 packs of cigarettes per day since he was a teenager. He denies any history of heavy alcohol use. He does smoke marijuana on occasion. He is on disability. Code status: Full code Surrogate decision maker: Claudia Rider (Fidel) Smoking packs per day: 2 Smoking cigarettes per day: 40.0 Years smoked: 28 Smoking pack-years: 56.00 Smoking status: Current every day smoker Alcohol intake: current Substance use: current Substance use type: marijuana Exam 2 Narrative: APPEARANCE: Diaphoretic, uncomfortable. Head: atraumatic. EYES: EOMI, NOSE: Atraumatic NECK: Trachea midline RESPIRATORY: Wheezing in all giang CARDIOVASCULAR: Tachycardic ABDOMINAL: Distended, obese tenderness in the left quadrant MUSCULOSKELETAl: No obvious deformities NEURO: Alert. Moving 4/4 extremities SKIN:: Diaphoretic PSYCHIATRIC: Anxious. Course Vital Signs Vital signs: Vital Signs Temperature 97.7 F 12/07/24 21:19 Pulse Rate 115 H 12/07/24 21:19 Respiratory Rate 20 12/07/24 21:19 Blood Pressure 174/112 H 12/07/24 21:19 Pulse Oximetry 100 12/07/24 21:19 Oxygen Delivery Room Air 12/07/24 21:19 Temperature 98.1 F 12/08/24 06:05 Pulse Rate 100 12/08/24 06:05 Respiratory Rate 20 12/08/24 06:05 Blood Pressure 108/58 L 12/08/24 06:05 Pulse Oximetry 97 12/08/24 06:05 Oxygen Delivery Mechanical Ventilation 12/08/24 05:05 Fraction of Inspired Oxygen 40 12/08/24 05:05 Procedures Chest Tube Chest Tube 1: Chest Tube Date: 12/08/24 Chest Tube Location: left and anterior axillary line Tube Type: standard Chest Tube Prep: Yes betadine prep and sterile drapes applied Incision Made With: #11 blade Procedure: incision/open Post Procedure: sutured to skin, sterile dressing applied and connected to Pluero Vac Tube Drainage: blood Amount of initial drainage (mL): 500 Post Procedure CXR?: Yes Post Procedure: post CXR reviewed and placement appropriate Patient Tolerated Procedure: Yes Intubation Intubation #1: Intubation Date: 12/08/24 Time out performed: Yes sedative: Etomidate Mg Given: 20 paralytic: Rocuronium Mg Given: 100 Laryngoscope: fiber optic video scope Tube Size (cm): 7.5 Method of Intubation: orotracheal Number of Attempts: 1 Tube Secured Depth (cm): 27 Tube Secured Location: lips Tube Placement Confirmation: visualized tube passing through cords Patient Tolerated Procedure: well Intubation Complications: hypoxia (Brief episode of hypoxia < 15 seconds that quickly responded to ) Medical Decision Making [facility] Narrative Medical decision making narrative: -Course: 44-year-old male presenting with a popping sensation after coughing. On arrival is tachycardic, . He has wheezing in all giang and given a breathing treatment. White count was elevated at 16 so started on antibiotics cover pneumonia. He has also incredibly anxious was given Valium and pain control. CTA chest abdomen pelvis ordered to evaluate his pain on the left side. Patient found to have an isolated left 8th rib fracture and a small hemothorax. Clinically the patient continued to deteriorate and became tachycardic in the 150s, tachypneic in the 30s and diaphoretic. Repeat chest x-ray showed expanding hemothorax and infiltrates on the left side. This is concerning for an intercostal bleed. The patient was intubated for airway protection. A 36 Kinyarwanda chest tube was placed in the left side with initial output of 500 cc blood. [facility] transfer line was contacted and the patient be transferred. Accepted by Dr. Valle. -DDX includes but is not limited to: Pneumonia, cracked rib, asthma, PE, dissection, spontaneous hematoma -Co-morbidities complicating care: Morbid obesity, asthma, high cholesterol, cerebral palsy Vital Signs Vital Signs: Vital Signs Temperature 97.7 F 12/07/24 21:19 Pulse Rate 115 H 12/07/24 21:19 Respiratory Rate 20 12/07/24 21:19 Blood Pressure 174/112 H 12/07/24 21:19 Pulse Oximetry 100 12/07/24 21:19 Oxygen Delivery Room Air 12/07/24 21:19 Temperature 98.1 F 12/08/24 06:05 Pulse Rate 100 12/08/24 06:05 Respiratory Rate 20 12/08/24 06:05 Blood Pressure 108/58 L 12/08/24 06:05 Pulse Oximetry 97 12/08/24 06:05 Oxygen Delivery Mechanical Ventilation 12/08/24 05:05 Fraction of Inspired Oxygen 40 12/08/24 05:05 Lab Data 12/08/24 05:57 12/07/24 22:07 Labs: Lab Results 12/07/24 12/07/24 12/08/24 Range/Units 22:06 22:07 01:06 WBC 16.2 H (4.5-10.0) K/mm3 RBC 4.69 (4.6-6.20) M/mm3 Hgb 14.6 (14.0-18.0) g/dL Hct 44.2 (42.0-52.0) % MCV 94.2 (80-100) fl MCH 31.1 (26-34) pg MCHC 33.0 (32-36) g/dl RDW 12.5 (11.5-14.5) % Plt Count 250 (150-375) k/mm3 MPV 10.8 H (7.4-10.4) fl Immature Gran % (Auto) 0.6 H (0-0.5) % Neut % (Auto) 81.8 H (45.5-73.1) % Lymph % (Auto) 12.4 L (18.3-44.2) % Morris % (Auto) 3.9 (2.6-8.5) % Eos % (Auto) 0.9 (0-4.4) % Baso % (Auto) 0.4 (0.2-1.2) % Lymph # (Auto) 2.01 (0.9-3.2) K/mm3 Morris # (Auto) 0.6 (0.1-0.6) K/mm3 Eos # (Auto) 0.1 (0-0.3) K/mm3 Baso # (Auto) 0.1 (0.0-0.1) K/mm3 Abs Immat Gran (auto) 0.10 H (0.00-0.031) K/mm3 Absolute Neuts (auto) 13.3 H (1.3-6.7) K/mm3 Absolute Nucleated RBC 0.000 (0.0-0.012) K/mm3 Nucleated RBC % 0.0 (0.0-0.2) % PT 13.2 (11.1-14.7) Seconds INR 1.0 APTT 28.8 (22.3-36.8) Seconds Methemoglobin (0-1.5) %THb Minute Volume Vent Mode Tidal Volume ml PEEP cmH2O Peak Inspir Pressure Pressure Support Sodium 137 (137-145) mmol/L Potassium 4.1 (3.4-5.0) mmol/L Chloride 106 (98-107) mmol/L Carbon Dioxide 19 L (22-30) mmol/L Anion Gap 12 (4-12) mmol/L BUN 9 (9-20) mg/dL Creatinine 0.63 L (0.7-1.3) mg/dL Estim Creat Clear Calc 205 ml/min Estimated GFR > 60 (59 - ) Glucose 150 H (65-110) mg/dL Lactic Acid 1.7 (0.7-2.0) mmol/L Calcium 9.1 (8.4-10.2) mg/dL Phosphorus 3.2 (2.5-4.5) mg/dL Magnesium 2.1 (1.6-2.3) mg/dL Total Bilirubin 0.7 (0.2-1.3) mg/dL AST 28 (17-59) U/L ALT 42 (6-50) U/L Alkaline Phosphatase 95 (38-126) U/L Troponin I < 0.012 < 0.012 (0.000-0.034) ng/mL NT-Pro-B Natriuret Pep 75 (19.9-100) pg/mL Total Protein 8.0 (6.3-8.2) g/dL Albumin 4.4 (3.5-5.1) g/dL Lipase 83 (23-300) U/L Urine Color (Yellow) Urine Appearance (Clear) Urine pH (5.0-9.0) Ur Specific [place] (1.001-1.035) Urine Protein (Negative) mg/dL Urine Glucose (UA) (Negative) mg/dL Urine Ketones (Negative) mg/dL Ur Blood (Man) (Negative) Urine Nitrate (Negative) Urine Bilirubin (Negative) Urine Urobilinogen (<2.0) mg/dL Add Ur Microanalysis Leukocyte Esterase Rfl (Negative) JEWELL/UL Urine RBC (0-2) /hpf Urine WBC (0-3) /hpf Ur Squamous Epith Cells (Few) /hpf Urine Bacteria /hpf Urine Casts Urine Opiates Screen (Negative) Urine Methadone Screen (Negative) Ur Barbiturates Screen (Negative) Ur Phencyclidine Scrn (Negative) Ur Amphetamine Screen (Negative) U Benzodiazepines Scrn (Negative) Urine Cocaine Screen (Negative) U Cannabinoids Screen (Negative) Ethyl Alcohol < 10 (<10) mg/dL Influenza A (RT-PCR) Negative (Negative) Influenza B (RT-PCR) Negative (Negative) RSV (RT-PCR) Negative (Negative) SARS-CoV-2 RNA (RT-PCR) Negative (Negative) Blood Type Antibody Screen Crossmatch 12/08/24 12/08/24 12/08/24 Range/Units 01:41 02:42 03:21 WBC (4.5-10.0) K/mm3 RBC (4.6-6.20) M/mm3 Hgb 13.4 L (14.0-18.0) g/dL Hct 41.1 L (42.0-52.0) % MCV (80-100) fl MCH (26-34) pg MCHC (32-36) g/dl RDW (11.5-14.5) % Plt Count (150-375) k/mm3 MPV (7.4-10.4) fl Immature Gran % (Auto) (0-0.5) % Neut % (Auto) (45.5-73.1) % Lymph % (Auto) (18.3-44.2) % Morris % (Auto) (2.6-8.5) % Eos % (Auto) (0-4.4) % Baso % (Auto) (0.2-1.2) % Lymph # (Auto) (0.9-3.2) K/mm3 Morris # (Auto) (0.1-0.6) K/mm3 Eos # (Auto) (0-0.3) K/mm3 Baso # (Auto) (0.0-0.1) K/mm3 Abs Immat Gran (auto) (0.00-0.031) K/mm3 Absolute Neuts (auto) (1.3-6.7) K/mm3 Absolute Nucleated RBC (0.0-0.012) K/mm3 Nucleated RBC % (0.0-0.2) % PT (11.1-14.7) Seconds INR APTT (22.3-36.8) Seconds Methemoglobin 0.1 (0-1.5) %THb Minute Volume Not Reportable Vent Mode Cmv Tidal Volume 450 ml PEEP 5 cmH2O Peak Inspir Pressure Not Reportable Pressure Support Not Reportable Sodium (137-145) mmol/L Potassium (3.4-5.0) mmol/L Chloride (98-107) mmol/L Carbon Dioxide (22-30) mmol/L Anion Gap (4-12) mmol/L BUN (9-20) mg/dL Creatinine (0.7-1.3) mg/dL Estim Creat Clear Calc ml/min Estimated GFR (59 - ) Glucose (65-110) mg/dL Lactic Acid (0.7-2.0) mmol/L Calcium (8.4-10.2) mg/dL Phosphorus (2.5-4.5) mg/dL Magnesium (1.6-2.3) mg/dL Total Bilirubin (0.2-1.3) mg/dL AST (17-59) U/L ALT (6-50) U/L Alkaline Phosphatase (38-126) U/L Troponin I (0.000-0.034) ng/mL NT-Pro-B Natriuret Pep (19.9-100) pg/mL Total Protein (6.3-8.2) g/dL Albumin (3.5-5.1) g/dL Lipase (23-300) U/L Urine Color Yellow (Yellow) Urine Appearance Clear (Clear) Urine pH 6.0 (5.0-9.0) Ur Specific [place] > 1.045 H (1.001-1.035) Urine Protein 1+ H (Negative) mg/dL Urine Glucose (UA) Negative (Negative) mg/dL Urine Ketones Trace H (Negative) mg/dL Ur Blood (Man) Negative (Negative) Urine Nitrate Negative (Negative) Urine Bilirubin Negative (Negative) Urine Urobilinogen 0.2 (<2.0) mg/dL Add Ur Microanalysis Reviewed Leukocyte Esterase Rfl Negative (Negative) JEWELL/UL Urine RBC 3-5 H (0-2) /hpf Urine WBC 0-5 (0-3) /hpf Ur Squamous Epith Cells None seen (Few) /hpf Urine Bacteria None seen /hpf Urine Casts 0-2 Urine Opiates Screen Positive A (Negative) Urine Methadone Screen Negative (Negative) Ur Barbiturates Screen Negative (Negative) Ur Phencyclidine Scrn Negative (Negative) Ur Amphetamine Screen Negative (Negative) U Benzodiazepines Scrn Positive A (Negative) Urine Cocaine Screen Negative (Negative) U Cannabinoids Screen Positive A (Negative) Ethyl Alcohol (<10) mg/dL Influenza A (RT-PCR) (Negative) Influenza B (RT-PCR) (Negative) RSV (RT-PCR) (Negative) SARS-CoV-2 RNA (RT-PCR) (Negative) Blood Type Antibody Screen Crossmatch 12/08/24 Range/Units 05:57 WBC (4.5-10.0) K/mm3 RBC (4.6-6.20) M/mm3 Hgb 13.6 L (14.0-18.0) g/dL Hct 41.7 L (42.0-52.0) % MCV (80-100) fl MCH (26-34) pg MCHC (32-36) g/dl RDW (11.5-14.5) % Plt Count (150-375) k/mm3 MPV (7.4-10.4) fl Immature Gran % (Auto) (0-0.5) % Neut % (Auto) (45.5-73.1) % Lymph % (Auto) (18.3-44.2) % Morris % (Auto) (2.6-8.5) % Eos % (Auto) (0-4.4) % Baso % (Auto) (0.2-1.2) % Lymph # (Auto) (0.9-3.2) K/mm3 Morris # (Auto) (0.1-0.6) K/mm3 Eos # (Auto) (0-0.3) K/mm3 Baso # (Auto) (0.0-0.1) K/mm3 Abs Immat Gran (auto) (0.00-0.031) K/mm3 Absolute Neuts (auto) (1.3-6.7) K/mm3 Absolute Nucleated RBC (0.0-0.012) K/mm3 Nucleated RBC % (0.0-0.2) % PT (11.1-14.7) Seconds INR APTT (22.3-36.8) Seconds Methemoglobin (0-1.5) %THb Minute Volume Vent Mode Tidal Volume ml PEEP cmH2O Peak Inspir Pressure Pressure Support Sodium (137-145) mmol/L Potassium (3.4-5.0) mmol/L Chloride (98-107) mmol/L Carbon Dioxide (22-30) mmol/L Anion Gap (4-12) mmol/L BUN (9-20) mg/dL Creatinine (0.7-1.3) mg/dL Estim Creat Clear Calc ml/min Estimated GFR (59 - ) Glucose (65-110) mg/dL Lactic Acid (0.7-2.0) mmol/L Calcium (8.4-10.2) mg/dL Phosphorus (2.5-4.5) mg/dL Magnesium (1.6-2.3) mg/dL Total Bilirubin (0.2-1.3) mg/dL AST (17-59) U/L ALT (6-50) U/L Alkaline Phosphatase (38-126) U/L Troponin I (0.000-0.034) ng/mL NT-Pro-B Natriuret Pep (19.9-100) pg/mL Total Protein (6.3-8.2) g/dL Albumin (3.5-5.1) g/dL Lipase (23-300) U/L Urine Color (Yellow) Urine Appearance (Clear) Urine pH (5.0-9.0) Ur Specific [place] (1.001-1.035) Urine Protein (Negative) mg/dL Urine Glucose (UA) (Negative) mg/dL Urine Ketones (Negative) mg/dL Ur Blood (Man) (Negative) Urine Nitrate (Negative) Urine Bilirubin (Negative) Urine Urobilinogen (<2.0) mg/dL Add Ur Microanalysis Leukocyte Esterase Rfl (Negative) JEWELL/UL Urine RBC (0-2) /hpf Urine WBC (0-3) /hpf Ur Squamous Epith Cells (Few) /hpf Urine Bacteria /hpf Urine Casts Urine Opiates Screen (Negative) Urine Methadone Screen (Negative) Ur Barbiturates Screen (Negative) Ur Phencyclidine Scrn (Negative) Ur Amphetamine Screen (Negative) U Benzodiazepines Scrn (Negative) Urine Cocaine Screen (Negative) U Cannabinoids Screen (Negative) Ethyl Alcohol (<10) mg/dL Influenza A (RT-PCR) (Negative) Influenza B (RT-PCR) (Negative) RSV (RT-PCR) (Negative) SARS-CoV-2 RNA (RT-PCR) (Negative) Blood Type Pending Antibody Screen Pending Crossmatch See Detail ABG Data ABG results: 12/07/24 12/08/24 23:48 02:42 Puncture Site Right radial Right radial ABG pH 7.386 7.224 L* ABG pCO2 29.3 L 45.2 H ABG pO2 157.6 H 79.2 L ABG PO2/FiO2 Ratio 3.15 1.98 ABG HCO3 17.2 L 18.3 L ABG O2 Saturation 99.0 93.4 L ABG O2 Content 21.6 18.8 ABG Base Excess -6.3 -9.2 A-a Gradient 165.9 154.0 Oxyhemoglobin 98.0 92.5 Carboxyhemoglobin 1.3 Reduced Hemoglobin 6.1 H Total Hemoglobin 15.5 14.4 O2 Delivery Device Other device Ventilator O2 Liters/Min 7.0 Not Reportable Vent Rate 16 FiO2 50 40 Critical Care Time Critical Care Time Critical Care Time: Yes Total Critical Care Time: 120 Discharge Plan Discharge Clinical Impression: Hemothorax Fracture, rib Qualifiers: Encounter type: initial encounter Rib fracture type: single rib Fracture type: closed Laterality: left Qualified Code(s): S22.32XA - Fracture of one rib, left side, initial encounter for closed fracture Patient Disposition: Acute Care Hospital Condition: Guarded Prognosis Instructions: Antibiotic Form Patient Language: Lithuanian Follow-up/Referrals: UNKNOWN,DOCTOR [Primary Care Provider] -
[2024-12-07] MEDS: IPRATROPIUM 0.5 MG/ALBUTEROL SULFATE 2.5 MG AMPUL.NEB 3 ML 12 ML INHALATION (23:39)
[2024-12-08] VITALS (44 sets, daily range): BP systolic 98–160; BP diastolic 48–118; PULSE 0–163; RESP 0–35; TEMP 36.7–37.2; O2SAT 93–100
[2024-12-08 00:06] LABS: NT Pro B Type Natriuretic Pept 75 pg/mL (19.9-100)
--- NOTE | 2024-12-08 00:08 | PC.NURSE ---
ERP in room doing bedside US.
[2024-12-08 00:10] LABS: Alveolar/Arterial O2 Gradient 165.9 mmHg; Base Excess ABG -6.3 mEq/l (+/-2.0); Fractional Inspired Oxygen 50 %; HCO3 ABG 17.2 mEq/l (22.0-26.0); Oxygen Content ABG 21.6 %vol (16.0-22.0); PCO2 ABG 29.3 mmHg (35.0-45.0); PO2 ABG 157.6 mmHg (80.0-100.0); PO2 FiO2 Ratio Arterial Blood 3.15 %; Total Hemoglobin 15.5 g/dL (12.0-18.0); pH ABG 7.386 (7.350-7.450)
[2024-12-08 00:11] LABS: Modified Allen's Test Pass; Site Drawn RIGHT RADIAL
[2024-12-08 00:12] LABS: Device OTHER DEVICE
[2024-12-08] MEDS: diazePAM INJ (*CRX) 10 MG/2 ML SYRINGE 5 MG IV PUSH (00:26)
--- NOTE | 2024-12-08 00:54 | ECG_ITS ---
Test Date: 2024-12-08 01:06:55 Measurements Intervals [place] Rate: 147 P: 31 TX: 134 QRS: 25 QRSD: 90 T: 62 QT: 284 QTc: 445 Interpretive Statements SINUS TACHYCARDIA DELAYED PRECORDIAL R/S TRANSITION BASELINE ARTIFACT- III, V1, V5-V6 ABNORMAL ECG Compared to ECG 12/07/2024 21:59:29 HEART RATE HAS INCREASED Electronically Signed On 12-08-2024 07:02:44 CDT by Saeed Zavaleta D.O.
[2024-12-08] MEDS: DOXYCYCLINE 100 MG/NS 100 ML 100 MG/100 ML BAG IVPB (01:08)
--- NOTE | 2024-12-08 01:15 | PC.NURSE ---
Patient aware of need for UA. Patient unable to provide one at this time, refusing straight cath.
[2024-12-08 01:22] LABS: Troponin I < 0.012 ng/mL (0.000-0.034)
[2024-12-08 01:36] LABS: Troponin I < 0.012 ng/mL (0.000-0.034)
[2024-12-08 01:46] LABS: Hematocrit 41.1 % (42.0-52.0); Hemoglobin 13.4 g/dL (14.0-18.0)
[2024-12-08] MEDS: RAPID SEQUENCE INTUBATION KIT 1 EACH (02:00)
[2024-12-08] MEDS: LORazepam INJ (*CRX) 2 MG/ML VIAL IV PUSH ×3 (02:15→07:02)
[2024-12-08] MEDS: HYDROmorphone HCL INJ (*CRX) 2 MG/ML VIAL 1 MG IV PUSH ×2 (02:15→07:02)
--- NOTE | 2024-12-08 02:15 | P.CONIM_ITS ---
Assessment and Plan Assessment and plan (1) Fracture, rib: Qualifiers: Encounter type: initial encounter Rib fracture type: single rib F racture type: closed Laterality: left Qualified Code(s): S22.32XA - Fracture of one rib, left side, initial encounter for closed fracture Code(s): S22.39XA - Fracture of one rib, unspecified side, initial encounter for closed fracture Status: Acute (2) Hemothorax: Code(s): J94.2 - Hemothorax Status: Acute (3) Acute respiratory failure with hypoxia and hypercapnia: Code(s): J96.01 - Acute respiratory failure with hypoxia; J96.02 - Acute respiratory failure with hypercapnia Status: Acute (4) Sepsis: Qualifiers: Sepsis type: sepsis due to unspecified organism Sepsis acute organ dysfunction status: with acute organ dysfunction Severe sepsis acute organ dysfunction type: acute respiratory failure Acute respiratory failure type: u nspecified Severe sepsis shock status: without septic shock Qualified Code(s): A41.9 - Sepsis, unspecified organism; R65.20 - Severe sepsis without septic shock; J96.00 - Acute respiratory failure, unspecified whether with hypoxia or hypercapnia Code(s): A41.9 - Sepsis, unspecified organism Status: Acute (5) Tobacco abuse disorder: Code(s): Z72.0 - Tobacco use Status: Acute Plan The patient presented with pain after hearing a pop imaging demonstrated 8th rib fracture with small hemothorax at rapidly accumulated with enlarging fluid collection. Patient was tachycardic, tachypneic with leukocytosis. He was started empiric antibiotic therapy with Rocephin and doxycycline. Blood cultures were obtained and are pending. The patient was noted to be wheezing and was also treated for possible asthma exacerbation with Solu-Medrol 125 mg and an hour long nebulizer treatment. Patient appeared to be compensating at repeat H&H demonstrated drop in hemoglobin of 1 g but patient had received 1 L fluid bolus. Patient's condition rapidly decompensated and if patient required intubation in the ER. He also received another 2 L fluid bolus due to hemodynamic status and 2 units of type nonspecific blood as he was suspected have large hemothorax. Initial ABG with results as listed above. I gave recommendations to increase the patient's ventilator rate to 20 or 22. Tidal volume remain the same. And patient ABG demonstrated a metabolic acidosis is acute and chronic hypercapnia that was not compensated despite patient's marked tachypnea with respiratory rates up to 35. Patient likely has some underlying COPD given his have a tobacco use history. Large bore chest tube was placed by ER provider with return of large amount of blood. Patient was subsequently transferred from the ER to [facility]. 40 minute spent in critical care activities. Including time spent in discussion with the ER provider and the patient and his fiancee at bedside. Due to a high probability of clinically significant, life threatening deterioration, the patient required my highest level of preparedness to intervene emergently and I personally spent this critical care time directly and personally managing the patient. This critical care time included obtaining a history; examining the patient; pulse oximetry; ordering and review of studies; arranging urgent treatment with development of a management plan; evaluation of patient's response to treatment; frequent reassessment; and discussions with other providers. It was exclusive of separately billable procedures and treating other patients and teaching time. Please see Assessment and Plan section and the rest of the note for further information on patient assessment and treatment. HPI Date of Consult Consult date: 12/08/24 Requesting Physician: Dr Price Primary Care Provider: UNKNOWN,DOCTOR Consult Narrative Narrative: Slim Armas II is a 44 year old male with a past medical history of asthma, heavy tobacco use, morbid obesity essential hypertension, hyperlipidemia, anxiety and loud snoring who presented to the ER from home via private vehicle due to feeling a pop in his chest after coughing. The patient had been having a cough for about 3 weeks. He went to his primary care provider's office on 11/15/2024 due to significant cough. He was given prescription for Augmentin, Flexeril, Medrol Dosepak and loratadine. He continued to have significant cough despite these medications. Today will while he was sitting down he had a aggressive bout of coughing and had felt a pop in his left chest. After that Poppy had severe sudden onset of 10/10 left lateral chest pain. He was diaphoretic and quite anxious on arrival to the hospital. Initial chest x-ray demonstrated atelectasis versus pneumonia. Given the patient's tachycardia and tachypnea CT of the chest was performed which demonstrated small hemo thorax. Incidental findings of hepatic steatosis and cholelithiasis. I contacted the ER provider for possible admission and agreed to accept the patient as long as surgery would be available to placed chest tube if patient's symptoms worsen. However, before patient could be admitted ER provider contacted me again because the patient had acute decompensation with tachycardia, increased tachypnea with respiratory rate in the 30s and was persistently diaphoretic. I went down to evaluate the patient in the patient had had a repeat chest x-ray at that time. After further discussion it was decided the patient needed emergent intubation and chest tube placement. In the interim radiology called back after reviewing repeat chest x-ray and was concerned for possible intercostal hemorrhage. Patient was subsequently intubated with initial tidal volume 450 rate 16 peep of 5. Large bore chest tube was placed by ER provider with immediate return of blood with additional return of 500 mL in the chamber. . Instead of being admitted to our facility decision was made that patient need transferred to higher level care for evaluation by Cardiothoracic surgery. Interestingly enough the patient did have had a area of old bruising to the left lower abdomen. He reported that his son had noticed bruising to the area. The patient denies any trauma or acute injury. Review of Systems 2 Review of Systems: The patient was only able to provide limited review of systems due to his critical condition. He reported mild chest pain with palpation of the chest wall and severe chest pain with breathing. He denied recent fevers or chills. His abdomen was noted to be quite distended but this is evidently chronic for the patient. Patient's fiancee was at bedside reports the patient snores quite loudly but does not have a diagnosis of obstructive sleep apnea. [facility] Past Medical History Medical History (Updated 12/08/24 @ 04:15 by Kavita Barnett DO) Cerebral palsy Patient states that he was told he outgrew it Tobacco abuse disorder Anxiety Hyperlipidemia Essential hypertension Morbid obesity with BMI of 40.0-44.9, adult Social History Social History (Updated 12/08/24 @ 04:08 by Kavita Barnett DO) Social History: Patient lives with his fitime of 7 years and his son. His smoked 2 packs of cigarettes per day since he was a teenager. He denies any history of heavy alcohol use. He does smoke marijuana on occasion. He is on disability. Code status: Full code Surrogate decision maker: Claudia Tereso (Fidel) Smoking packs per day: 2 Smoking cigarettes per day: 40.0 Years smoked: 28 Smoking pack-years: 56.00 Smoking status: Current every day smoker Alcohol intake: current Substance use: current Substance use type: marijuana Meds Home Medications and Allergies Allergies Allergy/AdvReac Type Severity Reaction Status Date / Time No Known Allergies Allergy Verified 12/07/24 22:12 Vital Signs Vital Signs - 24 hr 12/07/24 21:19 12/07/24 22:09 12/07/24 22:20 Temperature 97.7 F Pulse Rate 115 H 101 H 101 H Respiratory Rate 20 14 20 Blood Pressure 174/112 H 162/118 H 174/119 H Pulse Oximetry 100 98 100 Oxygen Delivery Room Air 12/07/24 22:21 12/07/24 22:22 12/07/24 23:26 Temperature Pulse Rate 100 121 H Respiratory Rate Blood Pressure Pulse Oximetry 100 100 Oxygen Delivery Room Air 12/07/24 23:30 12/07/24 23:30 12/07/24 23:40 Temperature Pulse Rate 121 H 136 H Respiratory Rate 22 H Blood Pressure Pulse Oximetry 99 100 Oxygen Delivery Room Air 12/07/24 23:45 12/08/24 00:00 12/08/24 00:01 Temperature Pulse Rate 142 H 161 H 158 H Respiratory Rate 26 H Blood Pressure Pulse Oximetry 100 100 100 Oxygen Delivery 12/08/24 00:15 12/08/24 00:30 12/08/24 00:45 Temperature Pulse Rate 163 H 151 H 154 H Respiratory Rate 33 H Blood Pressure Pulse Oximetry 98 Oxygen Delivery 12/08/24 00:46 12/08/24 01:00 12/08/24 01:03 Temperature Pulse Rate 156 H 143 H 145 H Respiratory Rate 27 H 22 H Blood Pressure 160/118 H Pulse Oximetry 100 100 Oxygen Delivery 12/08/24 01:43 12/08/24 01:46 Temperature 98.9 F Pulse Rate 145 H Respiratory Rate 26 H Blood Pressure 137/104 H Pulse Oximetry 98 Oxygen Delivery Exam 2 Narrative: Weight 158 kg BMI 44.7 Const: Other: Acutely ill-appearing, overt distress, morbidly obese HENMT: Other: Head is normocephalic atraumatic, pupils are equal and reactive, no scleral icterus, no conjunctival pallor, mucous membranes are dry, markedly crowded posterior oropharynx, large neck circumference Resp: Other: Decreased breath sounds the left lung field, marked tachypnea, accessory muscle use Cardio: Other: Sinus tachycardia, 2+ bilateral radial pedal pulses GI: Other: Obese, distended, tight abdomen, nontender, normoactive bowel sounds : Other: Circumcised male unable to place Purvis catheter Skin: Other: Cool, diaphoretic, mottled Neuro: Other: Alert oriented x4, speech is clear, no facial asymmetry Extrem: Other: No clubbing, cyanosis or edema, moves all extremities equally Psych: Other: Anxious, cooperative Results Labs 12/08/24 01:41 12/07/24 22:07 Labs: Laboratory Tests 12/07/24 12/07/24 12/07/24 22:06 22:07 23:48 WBC 16.2 H RBC 4.69 Hgb 14.6 Hct 44.2 MCV 94.2 MCH 31.1 MCHC 33.0 RDW 12.5 Plt Count 250 MPV 10.8 H Immature Gran % (Auto) 0.6 H Neut % (Auto) 81.8 H Lymph % (Auto) 12.4 L [place] % (Auto) 3.9 Eos % (Auto) 0.9 Baso % (Auto) 0.4 Lymph # (Auto) 2.01 [place] # (Auto) 0.6 Eos # (Auto) 0.1 Baso # (Auto) 0.1 Abs Immat Gran (auto) 0.10 H Absolute Neuts (auto) 13.3 H Absolute Nucleated RBC 0.000 Nucleated RBC % 0.0 PT 13.2 INR 1.0 APTT 28.8 Puncture Site Right radial ABG pH 7.386 ABG pCO2 29.3 L ABG pO2 157.6 H ABG PO2/FiO2 Ratio 3.15 ABG HCO3 17.2 L ABG O2 Saturation 99.0 ABG O2 Content 21.6 ABG Base Excess -6.3 A-a Gradient 165.9 Oxyhemoglobin 98.0 Carboxyhemoglobin Methemoglobin Reduced Hemoglobin Total Hemoglobin 15.5 O2 Delivery Device Other device O2 Liters/Min 7.0 Minute Volume Vent Rate Vent Mode FiO2 50 Tidal Volume PEEP Peak Inspir Pressure Pressure Support Sodium 137 Potassium 4.1 Chloride 106 Carbon Dioxide 19 L Anion Gap 12 BUN 9 Creatinine 0.63 L Estim Creat Clear Calc 205 Estimated GFR > 60 Glucose 150 H Lactic Acid 1.7 Calcium 9.1 Phosphorus 3.2 Magnesium 2.1 Total Bilirubin 0.7 AST 28 ALT 42 Alkaline Phosphatase 95 Troponin I < 0.012 NT-Pro-B Natriuret Pep 75 Total Protein 8.0 Albumin 4.4 Lipase 83 Urine Color Urine Appearance Urine pH Ur Specific [place] Urine Protein Urine Glucose (UA) Urine Ketones Ur Blood (Man) Urine Nitrate Urine Bilirubin Urine Urobilinogen Add Ur Microanalysis Leukocyte Esterase Rfl Urine RBC Urine WBC Ur Squamous Epith Cells Urine Bacteria Urine Casts Urine Opiates Screen Urine Methadone Screen Ur Barbiturates Screen Ur Phencyclidine Scrn Ur Amphetamine Screen U Benzodiazepines Scrn Urine Cocaine Screen U Cannabinoids Screen Ethyl Alcohol < 10 Influenza A (RT-PCR) Negative Influenza B (RT-PCR) Negative RSV (RT-PCR) Negative SARS-CoV-2 RNA (RT-PCR) Negative 12/08/24 12/08/24 12/08/24 01:06 01:41 02:42 WBC RBC Hgb 13.4 L Hct 41.1 L MCV MCH MCHC RDW Plt Count MPV Immature Gran % (Auto) Neut % (Auto) Lymph % (Auto) [place] % (Auto) Eos % (Auto) Baso % (Auto) Lymph # (Auto) [place] # (Auto) Eos # (Auto) Baso # (Auto) Abs Immat Gran (auto) Absolute Neuts (auto) Absolute Nucleated RBC Nucleated RBC % PT INR APTT Puncture Site Right radial ABG pH 7.224 L* ABG pCO2 45.2 H ABG pO2 79.2 L ABG PO2/FiO2 Ratio 1.98 ABG HCO3 18.3 L ABG O2 Saturation 93.4 L ABG O2 Content 18.8 ABG Base Excess -9.2 A-a Gradient 154.0 Oxyhemoglobin 92.5 Carboxyhemoglobin 1.3 Methemoglobin 0.1 Reduced Hemoglobin 6.1 H Total Hemoglobin 14.4 O2 Delivery Device Ventilator O2 Liters/Min Not Reportable Minute Volume Not Reportable Vent Rate 16 Vent Mode Cmv FiO2 40 Tidal Volume 450 PEEP 5 Peak Inspir Pressure Not Reportable Pressure Support Not Reportable Sodium Potassium Chloride Carbon Dioxide Anion Gap BUN Creatinine Estim Creat Clear Calc Estimated GFR Glucose Lactic Acid Calcium Phosphorus Magnesium Total Bilirubin AST ALT Alkaline Phosphatase Troponin I < 0.012 NT-Pro-B Natriuret Pep Total Protein Albumin Lipase Urine Color Urine Appearance Urine pH Ur Specific [place] Urine Protein Urine Glucose (UA) Urine Ketones Ur Blood (Man) Urine Nitrate Urine Bilirubin Urine Urobilinogen Add Ur Microanalysis Leukocyte Esterase Rfl Urine RBC Urine WBC Ur Squamous Epith Cells Urine Bacteria Urine Casts Urine Opiates Screen Urine Methadone Screen Ur Barbiturates Screen Ur Phencyclidine Scrn Ur Amphetamine Screen U Benzodiazepines Scrn Urine Cocaine Screen U Cannabinoids Screen Ethyl Alcohol Influenza A (RT-PCR) Influenza B (RT-PCR) RSV (RT-PCR) SARS-CoV-2 RNA (RT-PCR) 12/08/24 03:21 WBC RBC Hgb Hct MCV MCH MCHC RDW Plt Count MPV Immature Gran % (Auto) Neut % (Auto) Lymph % (Auto) [place] % (Auto) Eos % (Auto) Baso % (Auto) Lymph # (Auto) [place] # (Auto) Eos # (Auto) Baso # (Auto) Abs Immat Gran (auto) Absolute Neuts (auto) Absolute Nucleated RBC Nucleated RBC % PT INR APTT Puncture Site ABG pH ABG pCO2 ABG pO2 ABG PO2/FiO2 Ratio ABG HCO3 ABG O2 Saturation ABG O2 Content ABG Base Excess A-a Gradient Oxyhemoglobin Carboxyhemoglobin Methemoglobin Reduced Hemoglobin Total Hemoglobin O2 Delivery Device O2 Liters/Min Minute Volume Vent Rate Vent Mode FiO2 Tidal Volume PEEP Peak Inspir Pressure Pressure Support Sodium Potassium Chloride Carbon Dioxide Anion Gap BUN Creatinine Estim Creat Clear Calc Estimated GFR Glucose Lactic Acid Calcium Phosphorus Magnesium Total Bilirubin AST ALT Alkaline Phosphatase Troponin I NT-Pro-B Natriuret Pep Total Protein Albumin Lipase Urine Color Yellow Urine Appearance Clear Urine pH 6.0 Ur Specific [place] > 1.045 H Urine Protein 1+ H Urine Glucose (UA) Negative Urine Ketones Trace H Ur Blood (Man) Negative Urine Nitrate Negative Urine Bilirubin Negative Urine Urobilinogen 0.2 Add Ur Microanalysis Reviewed Leukocyte Esterase Rfl Negative Urine RBC 3-5 H Urine WBC 0-5 Ur Squamous Epith Cells None seen Urine Bacteria None seen Urine Casts 0-2 Urine Opiates Screen Positive A Urine Methadone Screen Negative Ur Barbiturates Screen Negative Ur Phencyclidine Scrn Negative Ur Amphetamine Screen Negative U Benzodiazepines Scrn Positive A Urine Cocaine Screen Negative U Cannabinoids Screen Positive A Ethyl Alcohol Influenza A (RT-PCR) Influenza B (RT-PCR) RSV (RT-PCR) SARS-CoV-2 RNA (RT-PCR) Impressions Chest X-Ray 12/07/24 21:53 IMPRESSION: Left basilar atelectasis versus pneumonia. Chest/Abdomen/Pelvis CTA 12/07/24 23:13 IMPRESSION: CHEST: 1. No evidence of dissection or aneurysm. 2. Fracture of the left eighth rib. 3. Left hemothorax. ABDOMEN/PELVIS: 1. No evidence of dissection or aneurysm. 2. No acute abdominal process. 3. Cholelithiasis. 4. Fat infiltration of the liver. Chest X-Ray 12/08/24 01:57 IMPRESSION: Increased opacification of the left hemithorax with large left-sided pleural thickening and layering density within the left lung base. Given patient's history of rib fracture with hemothorax, this appearance represents significant progression, possibly an intercostal hemorrhage. ADDENDUM: 12/08/24 0213 These findings were discussed with Dr. Price at 2:10 AM on 12/08/2024. Also post intubation chest x-ray reviewed ET tube 3 cm from shawna post OG placement demonstrated NG appropriate position EKG: Personally reviewed and interpreted sinus tachycardia rate [address] depression QTC 445 initial EKG few hours before that demonstrated rate of 103 All imaging and EKGs personally reviewed and interpreted. And unless stated otherwise agree with radiologic and cardiology interpretation. Hospitalist [facility] Advance Care Plan I have confirmed that the patient's Advanced Care Plan is present, code status is documented, or surrogate decision maker is listed in patient medical record.: Yes Medication Reconciliation The patient is not eligible for med reconciliation; the patient is in a emergent medical situation where delaying treatment would jeopardize the patients health.: Yes
[2024-12-08] MEDS: MIDAZOLAM 100MG/NS 100ML(*CRX) 100 MG/100 ML BAG IV CONT (02:42)
[2024-12-08] MEDS: TUBING, BLOOD SET 2 EACH XX (02:42)
[2024-12-08] MEDS: SODIUM CHLORIDE 0.9% IV 250 ML 30 ML IV CONT (02:42)
[2024-12-08] MEDS: FENTANYL 2,500MCG/NS250ML(*CRX 2,500 MCG/250 ML BAG 15 MCG IV CONT (02:46)
[2024-12-08 02:54] LABS: Base Excess ABG -9.2 mEq/l (+/-2.0); Carboxyhemoglobin 1.3 % THb (0-2.0); Fractional Inspired Oxygen 40 %; HCO3 ABG 18.3 mEq/l (22.0-26.0); Methemoglobin ABG 0.1 %THb (0-1.5); Oxygen Content ABG 18.8 %vol (16.0-22.0); Oxygen Saturation ABG 93.4 % (95.0-100.0); Oxyhemoglobin 92.5 % THb (90.0-100.0); PCO2 ABG 45.2 mmHg (35.0-45.0); PO2 ABG 79.2 mmHg (80.0-100.0); PO2 FiO2 Ratio Arterial Blood 1.98 %; Reduced Hemoglobin 6.1 %THb (0-5.0); Total Hemoglobin 14.4 g/dL (12.0-18.0)
[2024-12-08 02:55] LABS: Arterial Blood Gas PEEP 5 cmH2O; Arterial Blood Gas Tidal Volume 450 ml; Arterial Blood Gas Vent Mode CMV; Arterial Blood Gas Ventilator rate 16 /MIN; Device VENTILATOR; Modified Allen's Test Pass; Site Drawn RIGHT RADIAL; pH ABG 7.224 (7.350-7.450)
[2024-12-08] MEDS: LORazepam INJ (*CRX) 2 MG/ML VIAL ×2 (03:14→04:00)
[2024-12-08] MEDS: fentaNYL CITRATE INJ (*CRX) 100 MCG/2 ML VIAL 200 MCG (03:14)
[2024-12-08] MEDS: LIDOCAINE 2% GEL UROJET 10 ML PKG (03:18)
--- NOTE | 2024-12-08 03:34 | PC.NURSE ---
0200 ERP speaks with patient and fiance about intubation and sedation, and chest tube insertion. Patient and his fiance verbalized understanding. ERP also explains to patient for need for urgent blood to be transfused. Patient gives verbal consent and fiance also consents. 0205 RT, ERP, this RN and another RN in room to prepare patient for intubation, sedation, and chest tube insertion. VORB to draw up 20mg of etomidate, and 100mg of Molina, 1mg dilaudid, 2mg ativan. VORB to also mass transfuse urgent release blood, 2units. 0211 Time out performed. 0212 20mg etomidate given IVP. 0213 100mg Molina given IVP. 0214 ERP intubated patient with a 7.5ETT at 27 at this lip. +color change, visible chest rise and fall, breath sounds bilaterally. 0215 1mg dilaudid adn 2mg ativan given IVP per VORB. 0218 16F OG tube placed, 65 at the teeth, secured to ETT. 0240 2units of urgent relased blood started via gravity per orders by ERP. 0242 Versed drip started per orders in OCT. 0247 Fentanyl drip started per orders in OCT. 0257 ERP placed 36F chest tube in Left chest verified by Xray. Inital output is 500mls. 0314 VORB to give 200mcg of fentanyl IVP and 4mg ativan for patient becoming restless. 0318 ERP placed 14 F coude calvo due to mulitple RNs attempting without success. So no temp calvo placed due to difficulty with placing catheter.
[2024-12-08 03:37] LABS: Add Urine Microscopic? YES; Appearance Urine Clear (Clear); Bacteria Urine None Seen /hpf; Bilirubin Urine Negative (Negative); Blood Urine Negative (Negative); Color Urine Yellow (Yellow); Glucose Urine UA Negative (Negative); Ketones Urine Trace mg/dL (Negative); Leukocyte Esterase Ur Negative LEU/UL (Negative); Nitrate Urine Negative (Negative); Non Pathogenic Casts 0-2; Protein Urine 1+ mg/dL (Negative); Specific Grav Ur > 1.045 (1.001-1.035); Squamous Epithelial Cell Urine None Seen /hpf (Few); Urobilinogen Urine 0.2 mg/dL (<2.0); WBC Urine 0-5 /hpf (0-3)
[2024-12-08 03:42] LABS: Need Manual Microscopic Reviewed
[2024-12-08 03:45] LABS: Amphetamine Screen Urine Negative (Negative); Barbiturate Screen Urine Negative (Negative); Benzodiazepines Screen Urine Positive (Negative); Cannabinoid Screen Urine Positive (Negative); Cocaine Screen Urine Negative (Negative); Methadone Screen Urine Negative (Negative); Opiate Screen Urine Positive (Negative); Phencyclidine Screen Urine Negative (Negative)
--- NOTE | 2024-12-08 03:50 | PC.NURSE ---
0348 Ismael with [facility] transfer center calls to get triage info.
[2024-12-08] MEDS: HYDROmorphone HCL INJ (*CRX) 2 MG/ML VIAL IV PUSH (04:00)
--- NOTE | 2024-12-08 04:11 | PC.NURSE ---
ERP aware and gives verbal order to have fentanyl drip at 250mcg/hr.
--- NOTE | 2024-12-08 04:54 | PC.NURSE ---
0432 Tiffany with [facility] transfer center calls to given room number of 440 in Surgical ICU at [place]. 0431 Report called to DANITZA Cyr at [phone]. loan counselor calling for transport.
[2024-12-08] MEDS: CRASH CART LOCKS 2 EACH XX ×2 (05:58)
[2024-12-08 06:04] LABS: Hematocrit 41.7 % (42.0-52.0); Hemoglobin 13.6 g/dL (14.0-18.0)
--- NOTE | 2024-12-08 06:29 | PC.NURSE ---
Quique here to transport patient. Bedside report given.
--- NOTE | 2024-12-08 07:23 | PC.NURSE ---
0702 VORB to give 1mg dilaudid, and 2mg ativan IVP before transport. Patient in helicopter at this time. This RN called over to notified of needed for extra help on helipad on landing, spoke with
== END 2024-12-08 07:24 | disposition short-term general hospital (02) ==
PROVIDERS: Emergency Provider Emergency Medicine
DX: J94.2 Hemothorax (principal); S22.32XA Fracture of one rib, left side, initial encounter for closed fracture; E78.5 Hyperlipidemia, unspecified; I10 Essential (primary) hypertension; F17.210 Nicotine dependence, cigarettes, uncomplicated; Z20.822 Contact with and (suspected) exposure to COVID-19
CPT/HCPCS: 31500; 32551; 36415; 36430; 36600; 71045; 71275; 74174; 80053; 80307; 81001; 82077; 82375; 82805; 83050; 83605; 83690; 83735; 83880; 84100; 84484; 85014; 85018; 85025; 85610; 85730; 86850; 86900; 86901; 86920; 87040; 87637; 93005; 94002; 94640; 96361; 96365; 96366; 96367; 96375; 96376; 99285; C1729; J0696; J1171; J2060; J2250; J2919; J3010; J3360; J7030; J7050; P9016; Q9967